=== PATIENT | female | born 1990 | race American Indian/Alaskan Native ===

== ENCOUNTER 2016-10-21 09:35 | Inpatient (IN) | payer OTHER ==
--- NOTE | 2016-10-21 09:53 | C.PDOC ---
History Of Present Illness 25 y/o female presents to ED with mother with complaints of intermittent chest pain x1.5 weeks. Pain is achy with occasional SOB and palpitations, exertional. Currently pain is midsternal. Pt is currently on her menstrual cycle. Mother states patient is anemic and concerned for low hemoglobin. Pt typically has heavy menses. Pt denies dizziness, lightheadedness, weakness, fever, chills, cough, nausea, vomiting, or any other complaints. She denies any other stress at work or anxiety. No oral contraceptive use. No recent travel. Wells Criteria for PE - Wells Criteria for Pulmonary Embolism Clinical Signs and Symptoms of DVT: No P.E is #1 Diagnosis, or Equally Likely: No Heart Rate >100: No Immobilization at least 3 days;Surgery previous 4 weeks: No Previous, objectively diagnosed PE or DVT: No Hemoptysis: No Malignancy w/treatment within 6 months, or palliative: No Total Score: 0 Time Seen by Provider: 10/21/16 09:45 Chief Complaint (Nursing): Chest Pain History Per: Patient History/Exam Limitations: no limitations Onset/Duration Of Symptoms: Days, Intermittent Episodes Current Symptoms Are (Timing): Still Present Severity: Mild Quality: Aching Exacerbating Factors: Exertion Recent travel outside of the [place]: No Additional History Per: Family Past Medical History Reviewed: Historical Data, Nursing Documentation, Vital Signs Vital Signs: Last Vital Signs Temp 98.4 F 10/21/16 10:05 Pulse 82 10/21/16 10:05 Resp 18 10/21/16 10:05 BP 118/74 10/21/16 10:05 Pulse Ox 100 10/21/16 10:05 Family History: States: Unknown Family Hx - Social History Hx Tobacco Use: No Hx Alcohol Use: No Hx Substance Use: No - Immunization History Hx Tetanus Toxoid Vaccination: No Hx Influenza Vaccination: No Hx Pneumococcal Vaccination: No Review Of Systems Except As Marked, All Systems Reviewed And Found Negative. Constitutional: Negative for: Fever, Chills Cardiovascular: Positive for: Chest Pain, Palpitations. Negative for: Light Headedness Respiratory: Positive for: Shortness of Breath. Negative for: Cough Gastrointestinal: Negative for: Nausea, Vomiting Neurological: Negative for: Weakness, Headache, Dizziness Physical Exam - Physical Exam Appears: Non-toxic, No Acute Distress Skin: Normal Color, Warm, Dry, No Rash Head: Atraumatic, Normacephalic Eye(s): bilateral: Normal Inspection, PERRL, EOMI, Other (Conjunctiva normal color) Neck: Normal, Normal ROM, Supple Chest: Symmetrical Cardiovascular: Rhythm Regular, No Murmur Respiratory: Normal Breath Sounds, No Rales, No Rhonchi, No Wheezing Gastrointestinal/Abdominal: Normal Exam, Soft, No Tenderness Back: Normal Inspection Extremity: Normal ROM Extremity: Bilateral: Atraumatic Neurological/Psych: Oriented x3, Normal Speech ED Course And Treatment - Laboratory Results Result Diagrams: 10/21/16 10:24 10/21/16 10:24 ECG: Interpreted By Me, Viewed By Me ECG Rhythm: Sinus Rhythm Interpretation Of ECG: T-wave inversions in V3 Rate From EC (BPM) Medical Decision Making Medical Decision Making: Plan: rule out symptomatic anemia vs anxiety; less likely PE * EKG * labs * CXR Patient's hgb is below 7 and she's symptomatic. Anemia is most likely due to her menstraul cycle and h/o anemia. She has signed consent for blood transfusion understanding the risks as discussed with the conset. She will be placed on observation under Dr. Carrasco, Hospitalist service. Disposition Discussed With : Frederick Carrasco Doctor Will See Patient In The: Hospital - Disposition Disposition: HOSPITALIZED Disposition Time: 11:16 Condition: FAIR - POA Present On Arrival: None - Clinical Impression Clinical Impression: Symptomatic anemia - Scribe Statement The provider has reviewed the documentation as recorded by the Niranjan Mcnulty Provider Attestation: All medical record entries made by the Niranjan were at my direction and personally dictated by me. I have reviewed the chart and agree that the record accurately reflects my personal performance of the history, physical exam, medical decision making, and the department course for this patient. I have also personally directed, reviewed, and agree with the discharge instructions and disposition.
[2016-10-21 10:30] LABS: HEMATOCRIT 23.5 % (34.0-47.0); MEAN CELL VOLUME 58.4 fL (81.0-99.0); MEAN CORPUSCULAR HEMOGLOBIN 16.1 pg (27.0-31.0); MEAN CORPUSCULAR HGB CONC 27.6 g/dL (33.0-37.0); MEAN PLATELET VOLUME 8.6 fL (7.2-11.7); RED CELL DISTRIBUTION WIDTH 19.7 % (11.5-14.5); WHITE BLOOD COUNT 3.3 K/uL (4.8-10.8)
[2016-10-21 10:34] LABS: CHLORIDE 106 mmol/L (98-107); SODIUM 141 mmol/L (132-148)
[2016-10-21 10:35] LABS: POTASSIUM 3.9 mmol/L (3.6-5.2)
[2016-10-21 10:37] LABS: CARBON DIOXIDE 24 mmol/L (22-30); GFR AFRICAN-AMERICAN > 60
[2016-10-21 10:38] LABS: BLOOD UREA NITROGEN 12 mg/dL (7-17); CALCIUM 9.3 mg/dl (8.6-10.4); GLUCOSE,RANDOM 94 mg/dL (65-105)
[2016-10-21 10:50] LABS: INR 1.4; PARTIAL THROMBOPLASTIN TIME 33 SECONDS (21-34)
--- NOTE | 2016-10-21 10:56 | RAD ---
HISTORY: chest pain COMPARISON: No prior. TECHNIQUE: Chest PA and lateral FINDINGS: LUNGS: No active pulmonary disease. PLEURA: No significant pleural effusion identified. No pneumothorax apparent. CARDIOVASCULAR: Normal. OSSEOUS STRUCTURES: No significant abnormalities. VISUALIZED UPPER ABDOMEN: Normal. OTHER FINDINGS: None. IMPRESSION: No active disease.
--- NOTE | 2016-10-21 13:37 | CP.PCM.HP ---
<Praful Blake - Last Filed: 10/22/16 01:55> History of Present Illness - History of Present Illness History of Present Illness: CC: Chest pain HPI: Patient is a 25 year old AA female with no significant PMHx who presents with non-reproducible intermittent chest pain that started 1.5 weeks ago. Patient describes the chest as achy without radiation and rates it a 7/10 on the pain scale. Patient states that her chest pain worsens when lying down and it is better when she sits up. Patient states that she had the flu two weeks ago with symptoms of night sweats, fever and chills and myalgia, which she took theraflu for. On admission, patient stated that she no longer experiences the chest pain but was found to be anemic with a hemoglobin of 6.5; patient is on her menstrual cycle at this time. Currently, patient denies chest pain, chest pain with breathing, sob, headache, fever, chills, diaphoresis, nausea, vomiting , palpitations, cough, fatigue and heavy menorrhagia. PMD: Ez Beauchamp Pmhx: None PSHx: None Meds: None FHx: Maternal Grandfather (Sickle Cell), Paternal Grandmother (Sickle Cell) Social: lives with parents, works at a post office, denies tobacco, ETOH and illicit drug use. Allergies: NKDA Present on Admission - Present on Admission Any Indicators Present on Admission: No Review of Systems - Constitutional Constitutional: absent: Chills, Fatigue, Fever, Headache - EENT Eyes: absent: Blurred Vision, Change in Vision Ears: absent: Dizziness Nose/Mouth/Throat: absent: Epistaxis - Cardiovascular Cardiovascular: Dyspnea, Dyspnea on Exertion. absent: Chest Pain, Chest Pain at Rest, Diaphoresis, Palpitations - Respiratory Respiratory: Dyspnea, Dyspnea on Exertion. absent: Cough - Gastrointestinal Gastrointestinal: absent: Abdominal Pain, Constipation, Diarrhea - Genitourinary Genitourinary: absent: Pyuria, Urinary Frequency, Urinary Urgency - Reproductive: Female Reproductive:Female: Normal Menses. absent: Heavy Menses, Abnormal Vaginal Bleeding - Menstruation Menstruation: Normal Menses. absent: Heavy Menses, Abnormal Vaginal Bleeding - Musculoskeletal Musculoskeletal: absent: Muscle Weakness, Myalgias - Neurological Neurological: absent: Dizziness, Headaches, Syncope - Endocrine Endocrine: absent: Fatigue, Palpitations Past Patient History - Infectious Disease Hx of Infectious Diseases: None - Past Social History Smoking Status: Never Smoked - PSYCHIATRIC Hx Substance Use: No - SURGICAL HISTORY Hx Surgeries: No - ANESTHESIA Hx Anesthesia: No Meds Allergies/Adverse Reactions: Allergies Allergy/AdvReac Type Severity Reaction Status Date / Time No Known Allergies Allergy Verified 10/21/16 09:43 Physical Exam - Constitutional Appears: No Acute Distress - Head Exam Head Exam: NORMAL INSPECTION, NORMOCEPHALIC - Eye Exam Eye Exam: EOMI, Normal appearance - ENT Exam ENT Exam: Mucous Membranes Moist, Normal Exam - Respiratory Exam Respiratory Exam: Clear to Auscultation Bilateral, NORMAL BREATHING PATTERN - Cardiovascular Exam Cardiovascular Exam: REGULAR RHYTHM, +S1, +S2 - GI/Abdominal Exam GI & Abdominal Exam: Normal Bowel Sounds, Soft (Non-distended, Non) - Rectal Exam Rectal Exam: absent: Black Stool, Bloody Stool - Extremities Exam Extremities exam: Positive for: normal capillary refill, normal inspection. Negative for: calf tenderness - Neurological Exam Neurological exam: Alert, Oriented x3 - Psychiatric Exam Psychiatric exam: Normal Affect, Normal Mood - Skin Skin Exam: Dry, Normal Color, Warm Results - Vital Signs Recent Vital Signs: Last Vital Signs Temp 98.4 F 10/21/16 10:05 Pulse 73 10/21/16 11:50 Resp 16 10/21/16 11:50 BP 113/73 10/21/16 11:50 Pulse Ox 100 10/21/16 11:50 - Labs Result Diagrams: 10/21/16 10:24 10/21/16 10:24 Labs: Laboratory Results - last 24 hr 10/21/16 11:42 Blood Type B POSITIVE Blood Type Confirm B POSITIVE Antibody Screen Negative Assessment & Plan - Assessment and Plan (Free Text) Assessment: 1. Chest Pain: * R/o ACS, PE, DVT, pneumonia * Monitor on telemetry * Initial EKG: Normal sinus Rhythm, repeat EKG x2 * D-dimer: <200 (Negative) low probability for acute thrombosis * 1st ALPHONSO : <0.0120, repeat ALPHONSO x2 q6h * Chest X-ray: No active pulmonary disease * Acetaminophen 650mg PO q6 prn * f/u HgbA1c, Lipid panel in the am 2. Anemia -> Hgb: 6.5 * Hematology consulted -> help appreciated * Trasfuse 2units of PRBC; F/U CBC in the AM * f/u iron studies, folate, vitamin B12, TSH * f/u Sickle Screen and Hemoglobin electrophoresis * f/u occult stool blood 3. Prophylatic measures: * SCD * Pepcid 20mg PO BID <Frederick Carrasco - Last Filed: 10/22/16 13:25> Results - Vital Signs Recent Vital Signs: Last Vital Signs Temp 97.8 F 10/22/16 08:40 Pulse 59 L 10/22/16 08:40 Resp 20 10/22/16 08:40 BP 112/72 10/22/16 08:40 Pulse Ox 100 10/22/16 08:40 - Labs Result Diagrams: 10/22/16 06:24 10/22/16 06:24 Labs: Laboratory Results - last 24 hr 10/21/16 10/21/16 10/21/16 14:50 19:34 19:34 WBC RBC Hgb Hct MCV MCH MCHC RDW Plt Count MPV Neutrophils % (Manual) Lymphocytes % (Manual) Monocytes % (Manual) Platelet Estimate Hypochromasia (manual) Poikilocytosis (manual Anisocytosis (manual) Microcytosis (manual) Spherocytes Tear Drop Cells Ovalocytes Leonor Cells Schistocytes Retic Count Sickle Cell Screen Positive H Sodium Potassium Chloride Carbon Dioxide Anion Gap BUN Creatinine Est GFR ( Amer) Est GFR (Non-Af Amer) Random Glucose Calcium Iron TIBC % Saturation Transferrin Ferritin Total Bilirubin AST ALT Alkaline Phosphatase Total Creatine Kinase 44 49 CK-MB (Mass) < 0.22 < 0.22 Troponin I, Quant < 0.0120 < 0.0120 Total Protein Albumin Globulin Albumin/Globulin Ratio Triglycerides Cholesterol LDL Cholesterol Direct HDL Cholesterol Vitamin B12 Folate TSH 3rd Generation 10/21/16 10/21/16 10/22/16 20:19 20:19 01:16 WBC RBC Hgb Hct MCV MCH MCHC RDW Plt Count MPV Neutrophils % (Manual) Lymphocytes % (Manual) Monocytes % (Manual) Platelet Estimate Hypochromasia (manual) Poikilocytosis (manual Anisocytosis (manual) Microcytosis (manual) Spherocytes Tear Drop Cells Ovalocytes [place] Cells Schistocytes Retic Count 1.5 Sickle Cell Screen Sodium Potassium Chloride Carbon Dioxide Anion Gap BUN Creatinine Est GFR ( Amer) Est GFR (Non-Af Amer) Random Glucose Calcium Iron TIBC % Saturation Transferrin Ferritin 2.3 Total Bilirubin AST ALT Alkaline Phosphatase Total Creatine Kinase 38 CK-MB (Mass) < 0.22 Troponin I, Quant < 0.0120 Total Protein Albumin Globulin Albumin/Globulin Ratio Triglycerides Cholesterol LDL Cholesterol Direct HDL Cholesterol Vitamin B12 595 Folate 14.4 TSH 3rd Generation 10/22/16 10/22/16 10/22/16 06:24 06:24 06:24 WBC 5.5 D RBC 4.57 Hgb 8.7 L D Hct 29.0 L MCV 63.3 L D MCH 19.1 L MCHC 30.2 L RDW 24.7 H Plt Count 220 MPV 9.1 Neutrophils % (Manual) 62 Lymphocytes % (Manual) 33 Monocytes % (Manual) 5 Platelet Estimate Normal Hypochromasia (manual) Moderate Poikilocytosis (manual Slight Anisocytosis (manual) Moderate Microcytosis (manual) Moderate Spherocytes Slight Tear Drop Cells Slight Ovalocytes Slight [place] Cells Slight Schistocytes Slight Retic Count Sickle Cell Screen Sodium 138 Potassium 3.5 L Chloride 104 Carbon Dioxide 23 Anion Gap 15 BUN 9 Creatinine 0.6 L Est GFR ( Amer) > 60 Est GFR (Non-Af Amer) > 60 Random Glucose 75 Calcium 8.1 L Iron 33 L TIBC 459 H % Saturation Transferrin Ferritin 4.3 Total Bilirubin 1.6 H AST 17 ALT 12 Alkaline Phosphatase 43 Total Creatine Kinase CK-MB (Mass) Troponin I, Quant Total Protein 7.7 Albumin 3.8 Globulin 3.9 Albumin/Globulin Ratio 1.0 Triglycerides 97 Cholesterol 134 LDL Cholesterol Direct 49 HDL Cholesterol 47 Vitamin B12 649 Folate 17.0 TSH 3rd Generation 1.32 10/22/16 10/22/16 06:24 06:24 WBC RBC Hgb Hct MCV MCH MCHC RDW Plt Count MPV Neutrophils % (Manual) Lymphocytes % (Manual) Monocytes % (Manual) Platelet Estimate Hypochromasia (manual) Poikilocytosis (manual Anisocytosis (manual) Microcytosis (manual) Spherocytes Tear Drop Cells Ovalocytes [place] Cells Schistocytes Retic Count Sickle Cell Screen Sodium Potassium Chloride Carbon Dioxide Anion Gap BUN Creatinine Est GFR ( Amer) Est GFR (Non-Af Amer) Random Glucose Calcium Iron TIBC % Saturation 8 L Transferrin 348.91 Ferritin Total Bilirubin AST ALT Alkaline Phosphatase Total Creatine Kinase CK-MB (Mass) Troponin I, Quant Total Protein Albumin Globulin Albumin/Globulin Ratio Triglycerides Cholesterol LDL Cholesterol Direct HDL Cholesterol Vitamin B12 Folate TSH 3rd Generation Attending/Attestation - Attestation I have personally seen and examined this patient.: Yes I have fully participated in the care of the patient.: Yes I have reviewed all pertinent clinical information: Yes Notes (Text): 10/22/16 13:25 Patient was seen and examined at bedside with the resident Patient is awake alert without any acute distress We will transfuse the patient with the PRBC We will also request a hematology evaluation We'll initiate workup for anemia We'll also check for sickle cell trait. I discussed the plan of care with the resident and agree with the history and physical and assessment/plan by the resident.
[2016-10-21] MEDS ORDERED: Sodium Chloride 0.9% 250 ML IV ONE (13:58)
[2016-10-21 21:39] LABS: FOLATE 14.4 ng/mL
--- NOTE | 2016-10-22 01:40 | CP.PCM.PN ---
<Anamaria Galdamez EddieTasah - Last Filed: 10/22/16 08:26> Subjective - Date & Time of Evaluation Date of Evaluation: 10/22/16 Time of Evaluation: 00:00 - Subjective Subjective: PGY-1 Medicine note- Dr. Carrasco's service Patient was examined at bedside this AM. Patient denied chest pain, shortness of breath, diarrhea, or constipation. Objective - Vital Signs/Intake and Output Vital Signs (last 24 hours): Temp Pulse Resp BP Pulse Ox 98.1 F 57 L 20 110/57 L 99 10/21/16 23:50 10/21/16 23:50 10/21/16 23:50 10/21/16 23:50 10/21/16 23:00 Intake and Output: 10/21/16 10/22/16 18:59 06:59 Intake Total 825 Balance 825 - Medications Medications: Current Medications Acetaminophen (Tylenol 325mg Tab) 650 mg PO Q6 PRN PRN Reason: Pain, moderate (4-7) Famotidine (Pepcid) 20 mg PO BID [facility] Last Admin: 10/21/16 18:42 Dose: 20 mg - Labs Labs: PT 16.3 SECONDS (9.7-12.2) H 10/21/16 10:24 INR 1.4 10/21/16 10:24 APTT 33 SECONDS (21-34) 10/21/16 10:24 - Constitutional Appears: No Acute Distress - Head Exam Head Exam: NORMAL INSPECTION, NORMOCEPHALIC - Respiratory Exam Respiratory Exam: Clear to Ausculation Bilateral, NORMAL BREATHING PATTERN - Cardiovascular Exam Cardiovascular Exam: REGULAR RHYTHM, +S1, +S2 - GI/Abdominal Exam GI & Abdominal Exam: Soft, Normal Bowel Sounds. absent: Tenderness - Extremities Exam Extremities Exam: absent: Joint Swelling, Pedal Edema - Neurological Exam Neurological Exam: Alert, Awake, Oriented x3 Assessment and Plan - Assessment and Plan (Free Text) Assessment: Patient is a 25 year old AA female with no significant PMHx who presents with non-reproducible intermittent chest pain that started 1.5 weeks ago. Plan: 1. Chest Pain: * R/o ACS, PE, DVT, pneumonia * Monitor on telemetry * Initial EKG: Normal sinus Rhythm, repeat EKG x2 * D-dimer: <200 (Negative) low probability for acute thrombosis * 1st ALPHONSO : <0.0120, 2nd ALPHONSO: <0.0120, 3rd ALPHONSO: <0.0120 * Chest X-ray: No active pulmonary disease * Acetaminophen 650mg PO q6 prn * f/u HgbA1c * Cholesterol: 134; LDL: 46; HDL: 47; Triglycerides: 97 2. Anemia * Hematology consulted -> help appreciated * Trasfuse 2units of PRBC; H/H: * f/u iron studies, 8.7/29.0 * Folate: 17 * B12: 649 * TSH: 1.32 * Sickle Screen Positive * f/u occult stool blood 3. Prophylatic measures: * SCD * Pepcid 20mg PO BID <Frederick Carrasco - Last Filed: 10/22/16 15:10> Objective - Vital Signs/Intake and Output Vital Signs (last 24 hours): Temp Pulse Resp BP Pulse Ox 97.8 F 59 L 20 112/72 100 10/22/16 08:40 10/22/16 08:40 10/22/16 08:40 10/22/16 08:40 10/22/16 08:40 Intake and Output: 10/22/16 10/22/16 06:59 18:59 Intake Total 825 570 Balance 825 570 - Medications Medications: Current Medications Acetaminophen (Tylenol 325mg Tab) 650 mg PO Q6 PRN PRN Reason: Pain, moderate (4-7) Famotidine (Pepcid) 20 mg PO BID [facility] Last Admin: 10/22/16 09:55 Dose: 20 mg Ferrous Sulfate (Feosol) 325 mg PO TID [facility] - Labs Labs: 10/22/16 06:24 10/22/16 06:24 PT 16.3 SECONDS (9.7-12.2) H 10/21/16 10:24 INR 1.4 10/21/16 10:24 APTT 33 SECONDS (21-34) 10/21/16 10:24 Attending/Attestation - Attestation I have personally seen and examined this patient.: Yes I have fully participated in the care of the patient.: Yes I have reviewed all pertinent clinical information, including history, physical exam and plan: Yes Notes (Text): 10/22/16 15:08 Patient was seen and examined at bedside with the resident Patient is status post 2 units PRBC and she is feeling better Hematology evaluation has been requested. Patient wants to be discharged and she will follow-up with her primary medical doctor and with the ship pilot outside Patient's mother is also at bedside and she works at the office of Dr. Hui and she wants her daughter to be seen by Dr. Hui and then follow with the ship pilot We will start the patient on oral iron supplement and discharge her home Her sickle cell screen is positive. We have sent her blood work for hemoglobinopathy electrophoresis Her primary medical doctor follow-up results We'll discharge the patient home
[2016-10-22 06:41] LABS: MEAN CORPUSCULAR HEMOGLOBIN 19.1 pg (27.0-31.0); MEAN CORPUSCULAR HGB CONC 30.2 g/dL (33.0-37.0); MEAN PLATELET VOLUME 9.1 fL (7.2-11.7); PLATELET COUNT 220 K/uL (130-400); RED CELL DISTRIBUTION WIDTH 24.7 % (11.5-14.5)
[2016-10-22 06:48] LABS: CHLORIDE 104 mmol/L (98-107); POTASSIUM 3.5 mmol/L (3.6-5.2); SODIUM 138 mmol/L (132-148)
[2016-10-22 06:49] LABS: IRON 33 ug/dL (37-170)
[2016-10-22 06:50] LABS: AST/SGOT 17 U/L (14-36); BILIRUBIN,TOTAL 1.6 mg/dL (0.2-1.3); CARBON DIOXIDE 23 mmol/L (22-30); CHOLESTEROL 134 mg/dL (0-199); GFR AFRICAN-AMERICAN > 60; TOTAL PROTEIN 7.7 g/dL (6.3-8.3)
[2016-10-22 06:51] LABS: ALKALINE PHOSPHATASE 43 U/L (38-126); ALT/SGPT 12 U/L (9-52); BLOOD UREA NITROGEN 9 mg/dL (7-17); CALCIUM 8.1 mg/dl (8.6-10.4); GLUCOSE,RANDOM 75 mg/dL (65-105)
[2016-10-22 06:53] LABS: MEAN CELL VOLUME 63.3 fL (81.0-99.0); WHITE BLOOD COUNT 5.5 K/uL (4.8-10.8)
[2016-10-22 07:22] LABS: THYROID STIMULATING HORMONE 1.32 mIU/L (0.46-4.68)
[2016-10-22 08:42] VITALS: O2SAT 100
[2016-10-22] MEDS ORDERED: Potassium Chloride 20 mEq ER Tab PO STA (10:03)
[2016-10-22 12:14] LABS: NEUTROPHIL 62 % (50-75); TOTAL CELLS COUNTED 100
[2016-10-22 12:16] LABS: SPHEROCYTES SLIGHT
[2016-10-22 15:37] VITALS: BP 102/67; PULSE 68; RESP 18; TEMP 98.1
--- NOTE | 2016-10-22 21:05 | CP.PCM.DIS ---
Provider - Provider Date of Admission: 10/21/16 13:25 Attending physician: Frederick Carrasco MD Primary care physician: Dr. Elyssa Hui Consults: Dr. Andersen Time Spent in preparation of Discharge (in minutes): 35 Hospital Course - Lab Results Lab Results: Most Recent Lab Values WBC 5.5 K/uL (4.8-10.8) D 10/22/16 06:24 RBC 4.57 Mil/uL (3.80-5.20) 10/22/16 06:24 Hgb 8.7 g/dL (11.0-16.0) L D 10/22/16 06:24 Hct 29.0 % (34.0-47.0) L 10/22/16 06:24 MCV 63.3 fL (81.0-99.0) L D 10/22/16 06:24 MCH 19.1 pg (27.0-31.0) L 10/22/16 06:24 MCHC 30.2 g/dL (33.0-37.0) L 10/22/16 06:24 RDW 24.7 % (11.5-14.5) H 10/22/16 06:24 Plt Count 220 K/uL (130-400) 10/22/16 06:24 MPV 9.1 fL (7.2-11.7) 10/22/16 06:24 Neutrophils % (Manual) 62 % (50-75) 10/22/16 06:24 Lymphocytes % (Manual) 33 % (20-40) 10/22/16 06:24 Monocytes % (Manual) 5 % (0-10) 10/22/16 06:24 Platelet Estimate Normal (NORMAL) 10/22/16 06:24 Hypochromasia (manual) Moderate 10/22/16 06:24 Poikilocytosis (manual Slight 10/22/16 06:24 Anisocytosis (manual) Moderate 10/22/16 06:24 Microcytosis (manual) Moderate 10/22/16 06:24 Spherocytes Slight 10/22/16 06:24 Tear Drop Cells Slight 10/22/16 06:24 Ovalocytes Slight 10/22/16 06:24 Leonor Cells Slight 10/22/16 06:24 Schistocytes Slight 10/22/16 06:24 Retic Count 1.5 % (0.5-1.5) 10/21/16 20:19 Sickle Cell Screen Positive (NEGATIVE) H 10/21/16 19:34 PT 16.3 SECONDS (9.7-12.2) H 10/21/16 10:24 INR 1.4 10/21/16 10:24 APTT 33 SECONDS (21-34) 10/21/16 10:24 D-Dimer, Quantitative < 200 ng/mlDDU (0-243) 10/21/16 10:24 Sodium 138 mmol/L (132-148) 10/22/16 06:24 Potassium 3.5 mmol/L (3.6-5.2) L 10/22/16 06:24 Chloride 104 mmol/L (98-107) 10/22/16 06:24 Carbon Dioxide 23 mmol/L (22-30) 10/22/16 06:24 Anion Gap 15 (10-20) 10/22/16 06:24 BUN 9 mg/dL (7-17) 10/22/16 06:24 Creatinine 0.6 MG/DL (0.7-1.2) L 10/22/16 06:24 Est GFR ( Amer) > 60 10/22/16 06:24 Est GFR (Non-Af Amer) > 60 10/22/16 06:24 Random Glucose 75 mg/dL (65-105) 10/22/16 06:24 Calcium 8.1 mg/dl (8.6-10.4) L 10/22/16 06:24 Iron 33 ug/dL (37-170) L 10/22/16 06:24 TIBC 459 ug/dL (250-450) H 10/22/16 06:24 % Saturation 8 (20-55) L 10/22/16 06:24 Transferrin 348.91 mg/dL (206-381) 10/22/16 06:24 Ferritin 4.3 ng/mL 10/22/16 06:24 Total Bilirubin 1.6 mg/dL (0.2-1.3) H 10/22/16 06:24 AST 17 U/L (14-36) 10/22/16 06:24 ALT 12 U/L (9-52) 10/22/16 06:24 Alkaline Phosphatase 43 U/L (38-126) 06/24/17 06:24 Total Creatine Kinase 38 U/L (30-135) 10/22/16 01:16 CK-MB (Mass) < 0.22 ng/mL (0.0-3.38) 10/22/16 01:16 Troponin I, Quant < 0.0120 ng/mL (0.00-0.120) 10/22/16 01:16 Total Protein 7.7 g/dL (6.3-8.3) 10/22/16 06:24 Albumin 3.8 g/dL (3.5-5.0) 10/22/16 06:24 Globulin 3.9 gm/dL (2.2-3.9) 10/22/16 06:24 Albumin/Globulin Ratio 1.0 (1.0-2.1) 10/22/16 06:24 Triglycerides 97 mg/dL (0-149) 10/22/16 06:24 Cholesterol 134 mg/dL (0-199) 10/22/16 06:24 LDL Cholesterol Direct 49 mg/dL (0-129) 10/22/16 06:24 HDL Cholesterol 47 mg/dL (30-70) 10/22/16 06:24 Vitamin B12 649 pg/mL (239-931) 10/22/16 06:24 Folate 17.0 ng/mL 10/22/16 06:24 TSH 3rd Generation 1.32 mIU/L (0.46-4.68) 10/22/16 06:24 Blood Type B POSITIVE 10/21/16 11:42 Blood Type Confirm B POSITIVE 10/21/16 11:42 Antibody Screen Negative 10/21/16 11:42 - Hospital Course Hospital Course: Patient is a 25 year old AA female with no significant PMHx who presents with non-reproducible intermittent chest pain that started 1.5 weeks ago. Patient describes the chest as achy without radiation and rates it a 7/10 on the pain scale. Patient states that her chest pain worsens when lying down and it is better when she sits up. Patient states that she had the flu two weeks ago with symptoms of night sweats, fever and chills and myalgia, which she took theraflu for. On admission, patient stated that she no longer experiences the chest pain but was found to be anemic with a hemoglobin of 6.5; patient is on her menstrual cycle at this time. Currently, patient denies chest pain, chest pain with breathing, sob, headache, fever, chills, diaphoresis, nausea, vomiting, palpitations, cough, fatigue and heavy menorrhagia. ACS was ruled out for chest pain. Hematology Dr. Andersen consulted and 2U pRBC was transfused. Sickle screen positive and additional blood work sent for hemoglobinopathy electrophoresis. Patient discharged with Feosol 325mg PO TID and instructed to follow up with outpatient primary and heme/onc. Please see chart for more information. Discharge Exam - Head Exam Head Exam: NORMAL INSPECTION, NORMOCEPHALIC - Eye Exam Eye Exam: Normal appearance - Respiratory Exam Respiratory Exam: Clear to PA & Lateral, NORMAL BREATHING PATTERN - Cardiovascular Exam Cardiovascular Exam: REGULAR RHYTHM - Neurological Exam Neurological exam: Alert, Oriented x3 Discharge Plan - Discharge Medications Prescriptions: Ferrous Sulfate [Feosol] 325 mg PO TID #90 tab - Follow Up Plan Condition: IMPROVED Disposition: HOME/ ROUTINE Instructions: Iron Supplements (By mouth) Additional Instructions: Discharged per Dr. Carrasco. Please take prescribed medicine as instructed. Make appointment and follow up with Dr. Hui and Dr. Maxwell within 2 weeks. Come to ED if symptoms reoccurred. Referrals: Jose Antonio Hui MD [Staff Provider] - Catherine Gamble MD [Staff Provider] -
[2016-10-22] MEDS ORDERED: Ferric Sodium Gluconat Complex 62.5 mg/5 ml Vial IVPB SCH (22:00)
[2016-10-23 10:34] LABS: HEMATOCRIT 28.5 % (35.0-45.0); HEMOGLOBIN 8.1 g/dL (11.7-15.5); RDW 26.1 % (11.0-15.0)
== END 2016-10-22 21:29 | disposition home or self-care (01) | DRG 395 ==
LOC: C.ER 09:35 → C.9E 10:44 → OBSVTOIN 13:25 → C.6T 14:26
PROVIDERS: ADMIT Internal Medicine; ATTEND Internal Medicine
PROC: 30233N1 Transfusion of Nonautologous Red Blood Cells into Peripheral Vein, Percutaneous Approach (ICD-10-PCS; principal; 2016-10-21)
DX: D50.0 Iron deficiency anemia secondary to blood loss (chronic) (principal); N92.0 Excessive and frequent menstruation with regular cycle; R07.89 Other chest pain; R78.89 Finding of other specified substances, not normally found in blood

== ENCOUNTER 2018-08-12 12:11 | Emergency (ER) | payer SELFPAY ==
[2018-08-12 12:15] VITALS: BMI 22.0
[2018-08-12 12:20] VITALS: RESP 18; TEMP 98.6
--- NOTE | 2018-08-12 12:36 | C.PDOC ---
History Of Present Illness 27 y/o female presents to ED complaining of left-sided chest pain and shortness of breath for the past week, with chest pain exacerbated by deep breathing. Patient denies any cough, palpitations, diaphoresis, dizziness, headache, na usea, or vomiting. Time Seen by Provider: 08/12/18 12:23 Chief Complaint (Nursing): Chest Pain History Per: Patient History/Exam Limitations: no limitations Onset/Duration Of Symptoms: Days Current Symptoms Are (Timing): Still Present Past Medical History Reviewed: Historical Data, Nursing Documentation, Vital Signs Vital Signs: Last Vital Signs Temp 98.6 F 08/12/18 12:15 Pulse 80 08/12/18 12:15 Resp 18 08/12/18 12:15 BP 135/83 08/12/18 12:15 Pulse Ox 99 08/12/18 12:15 - [facility] Procedures TRANSFUSE NONAUT RED BLOOD CELLS IN PERIPH VEIN, PERC (10/21/16) Family History: States: No Known Family Hx - Social History Hx Tobacco Use: No Hx Alcohol Use: No Hx Substance Use: No - Immunization History Hx Tetanus Toxoid Vaccination: Yes Hx Influenza Vaccination: Yes Hx Pneumococcal Vaccination: Yes Review Of Systems Except As Marked, All Systems Reviewed And Found Negative. Constitutional: Negative for: Fever, Chills, Sweats Cardiovascular: Positive for: Chest Pain. Negative for: Palpitations Respiratory: Positive for: SOB with Excertion. Negative for: Cough Gastrointestinal: Negative for: Nausea, Vomiting, Abdominal Pain Neurological: Negative for: Weakness, Numbness, Dizziness Physical Exam - Physical Exam Appears: Non-toxic, No Acute Distress Skin: Warm, Dry Head: Atraumatic, Normacephalic Eye(s): bilateral: Normal Inspection Oral Mucosa: Moist Neck: Supple Chest: Symmetrical Cardiovascular: Rhythm Regular, No Murmur Respiratory: Normal Breath Sounds, No Rales, No Rhonchi, No Wheezing Gastrointestinal/Abdominal: Soft, No Tenderness Extremity: Bilateral: Atraumatic, Normal ROM Neurological/Psych: Oriented x3, Normal Speech, Normal Cognition Gait: Steady ED Course And Treatment - Laboratory Results Result Diagrams: 08/12/18 13:02 08/12/18 13:02 ECG: Interpreted By Me, Viewed By Me Interpretation Of ECG: No ST elevation. Q waves. O2 Sat by Pulse Oximetry: 99 (RA) Pulse Ox Interpretation: Normal - Other Rad CXR X-Ray: Read By Radiologist Interpretation: FINDINGS: No focal infiltrate or effusion. Mild patchy increased markings at the left lung base. Prominent bibasilar breast and nipple shadows. Heart size within normal limits. Impression: No focal infiltrate or effusion. Mild patchy increased markings at the left lung base. Prominent bibasilar breast and nipple shadows. Medical Decision Making Medical Decision Making: Plan: --EKG --Labs --Chest XR --UA Patient was advised to follow up with XR findings, repeat in 3 months. Disposition Counseled Patient/Family Regarding: Diagnosis, Need For Followup - Disposition Referrals: Jose Antonio Hui MD [Staff Provider] - Disposition: HOME/ ROUTINE Disposition Time: 13:57 Condition: STABLE Instructions: Chest Pain Forms: General Discharge Instructions, [facility] (Lao), Work Excuse - POA Present On Arrival: None - Clinical Impression Clinical Impression: Nonspecific chest pain - Scribe Statement The provider has reviewed the documentation as recorded by the Niranjan Joshua Provider Attestation: All medical record entries made by the Niranjan were at my direction and personally dictated by me. I have reviewed the chart and agree that the record accurately reflects my personal performance of the history, physical exam, medical decision making, and the department course for this patient. I have also personally directed, reviewed, and agree with the discharge instructions and disposition.
[2018-08-12 13:12] LABS: BASO % 0.9 % (0.0-2.0); EOS # 0.1 K/uL (0.0-0.7); EOS % 1.9 % (0.0-4.0); LYMPH # 1.6 K/uL (1.0-4.3); LYMPH % 39.8 % (20.0-40.0); MEAN CORPUSCULAR HEMOGLOBIN 27.6 pg (27.0-31.0); MEAN CORPUSCULAR HGB CONC 32.2 g/dL (33.0-37.0); MEAN PLATELET VOLUME 8.8 fL (7.2-11.7); MONO # 0.4 K/uL (0.0-0.8); MONO % 9.4 % (0.0-10.0); NEUT # 1.9 K/uL (1.8-7.0); NRBC % 0.1 % (0.0-2.0); RBC 3.88 Mil/uL (3.80-5.20); RED CELL DISTRIBUTION WIDTH 14.4 % (11.5-14.5); WHITE BLOOD COUNT 4.1 K/uL (4.8-10.8)
[2018-08-12 13:13] LABS: HEMOGLOBIN 10.7 g/dL (11.0-16.0); MEAN CELL VOLUME 85.6 fL (81.0-99.0)
--- NOTE | 2018-08-12 13:14 | RAD ---
Chest x-ray single frontal view HISTORY: Shortness of breath. Comparison: 10/21/2016 FINDINGS: No focal infiltrate or effusion. Mild patchy increased markings at the left lung base. Prominent bibasilar breast and nipple shadows. Heart size within normal limits. Impression: No focal infiltrate or effusion. Mild patchy increased markings at the left lung base. Prominent bibasilar breast and nipple shadows.
[2018-08-12 13:24] LABS: ALB/GLOB RATIO 1.1 (1.0-2.1); ALBUMIN 4.2 g/dL (3.5-5.0); ALT/SGPT 9 U/L (9-52); AST/SGOT 20 U/L (14-36); BLOOD UREA NITROGEN 13 mg/dL (7-17); CALCIUM 9.6 mg/dl (8.6-10.4); GFR NON-AFRICAN AMERICAN > 60
[2018-08-12 14:11] VITALS: BP 131/84; PULSE 65; O2SAT 100
--- NOTE | 2018-08-13 15:02 | CARD ---
APPROVED REPORT Date of service: 08/12/2018 EKG Measurement Heart [id number] <Conclusion> Normal sinus rhythm Possible Left atrial enlargement Septal infarct, age undetermined Abnormal ECG
== END 2018-08-12 14:12 | disposition home or self-care (01) ==
LOC: C.ER 12:11
DX: R07.9 Chest pain, unspecified (principal)